=== PATIENT | female | born 1965 | race Two or more races ===

== ENCOUNTER → 2017-07-11 | Outpatient (CLI) | payer BC | LOC: M LRY 18:47 | DX: K59.00 Constipation, unspecified (principal) | CPT/HCPCS: 74018 ==

== ENCOUNTER → 2020-12-17 | Outpatient (CLI) | payer BC ==
[~2020-12-17] MED LIST: MOTR200T44 PO; no medications
--- NOTE | 2020-12-17 12:55 | REP ---
INDICATION: RT KNEE OSTEOARTHRITIS. COMPARISON: None. TECHNIQUE: Sagittal spin-echo proton density, T2 STIR and T2 FLASH. Coronal spin-echo proton density and fat suppressed proton density. Axial fat suppressed proton density. FINDINGS: There is grade 3 signal change seen in a truncated posterior horn of the medial meniscus. There is grade 2 signal change of both anterior and posterior horns of the lateral meniscus. T2 hyper signal is seen throughout the anterior cruciate ligament which is intact the posterior cruciate ligament is intact the quadriceps and patellar tendons are intact. The medial and lateral collateral ligaments are intact. The medial and lateral patellar retinacula are intact. There is advanced thinning and irregularity of all articular cartilages. There is multifocal fissuring of the patellar articular cartilage. There is a joint effusion and parapatellar plica. There is no Arechiga's cyst. There is a cyst in the median aspect of the proximal tibial metaphysis which is likely degenerative in nature and measures approximately 1 cm IMPRESSION: 1. The posterior horn of the medial meniscus is torn in due to meniscal truncation I cannot rule out the possibility of a bucket-handle component although 1 is not definitively identified. 2. The anterior cruciate ligament is sprained. 3. Meniscal degenerative changes lateral meniscus. 4. Degenerative changes with tricompartmental marginal osteophytosis and tricompartmental chondromalacia. 5. There is a joint effusion with parapatellar plica 6. Other findings as described above. <Electronically signed by Ricardo Neves > 12/17/20 1743
== END ==
LOC: M RAD 07:34
PROVIDERS: ATTEND Orthopaedic Surgery
DX: M17.11 Unilateral primary osteoarthritis, right knee (principal); M25.461 Effusion, right knee; S83.511A Sprain of anterior cruciate ligament of right knee, initial encounter; M23.229 Derangement of posterior horn of medial meniscus due to old tear or injury, unspecified knee; Y92.9 Unspecified place or not applicable; Y93.9 Activity, unspecified; Y99.9 Unspecified external cause status